=== PATIENT | female | born 1995 | race Caucasian/White ===

== ENCOUNTER 2023-10-01 11:56 | Emergency (ER) | payer OTHER ==
[~2023-10-01] VITALS: Ht 170.2 cm; Wt 72.6 kg
[2023-10-01 12:59] VITALS: BP 152/93
[2023-10-01] MEDS ORDERED: BENZTROPINE MESY PO (15:17)
== END 2023-10-01 15:20 | disposition home or self-care (01) ==
LOC: ER 11:56
DX: G25.9 Extrapyramidal and movement disorder, unspecified (principal); F41.9 Anxiety disorder, unspecified; T43.505A Adverse effect of unspecified antipsychotics and neuroleptics, initial encounter
CPT/HCPCS: 99281; A9270